=== PATIENT | male | born 1995 | race Caucasian/White ===

== ENCOUNTER 2016-07-28 17:07 | Emergency (ER) | payer OTHER ==
[~2016-07-28] VITALS: Wt 61.2 kg
[~2016-07-28 17:07] MED LIST: HYDR-3498 PO; IBUP-1542 PO
[2016-07-28] MEDS ORDERED: OSLT75C PO (19:05)
[2016-07-28] MEDS ORDERED: IBUP-1542 PO (19:07)
[2016-07-28] MEDS ORDERED: ACET500C5 PO (19:07)
[2016-07-28] MEDS ORDERED: ACETAMINOPHEN 325 MG TAB PO ONE (19:30)
[2016-07-28 19:49] VITALS: BP 121/75; PULSE 82; RESP 20; TEMP 100.3
--- NOTE | 2016-07-28 19:56 | ERD ---
ER Documentation Chief Complaint Date/Time DATE: 07/28/16 TIME: 19:53 Chief Complaint FEVER FOR 3 DAYS. BILATERAL EAR PAIN WITH HEADACHES. HPI Patient is a 21-year-old male who presents to the ED with fever, body aches, ear pain and cough for 2 days. He states that he was playing soccer 2 days ago in the rain and developed symptoms afterwards. He also states that his girlfriend has had similar symptoms. Denies neck pain or stiffness. Denies headache or dizziness or blurry vision. Denies abdominal pain, nausea, vomiting or diarrhea. She is taking Motrin for his symptoms last dose was last night. Denies leg pain or swelling or recent travel. Denies shortness of breath or difficulty breathing ROS All systems reviewed and are negative except as per history of present illness. Medications Home Meds Active Scripts Ibuprofen* (Motrin*) 600 Mg Tab, 600 MG PO Q6, #30 TAB Prov:LASHAE FONTANA-C 07/28/16 Acetaminophen* (Tylophen*) 500 Mg Capsule, 1 CAP PO Q6H Y for PAIN AND OR ELEVATED TEMP, #20 CAP Prov:LASHAE FONTANA PA-C 07/28/16 Oseltamivir Phosphate* (Tamiflu*) 75 Mg Capsule, 75 MG PO BID for 5 Days, CAP Prov:LASHAE FONTANA-C 07/28/16 Ibuprofen* (Motrin*) 600 Mg Tab, 600 MG PO Q6H Y for PAIN AND OR ELEVATED TEMP, #20 Prov:KAPLI GRAFF 01/28/15 Hydrocodone Bit-Acetaminophen* ([place]*) 5-325 Mg Tab, 1 TAB PO Q6 Y for PAIN, # 10 TAB Prov:KAPIL GRAFF 01/28/15 Allergies Allergies: Coded Allergies: No Known Allergy (Unverified , 05/03/11) PMhx/Soc History of Surgery: No Anesthesia Reaction: No Hx Neurological Disorder: No Hx Respiratory Disorders: Yes (hx of asthma ) Hx Cardiac Disorders: No Hx Psychiatric Problems: No Hx Miscellaneous Medical Probl: No Hx Alcohol Use: No Hx Substance Use: No Hx Tobacco Use: No FmHx Family History: No coronary disease, No diabetes, No other Physical Exam Vitals Vital Signs Date Time Temp Pulse Resp B/P Pulse Ox O2 Delivery O2 Flow Rate FiO2 2/13/17 17:18 101.6 79 20 134/72 98 Physical Exam GENERAL: Well-developed, well-nourished male. Appears in no acute distress. HEAD: Normocephalic, atraumatic. EYES: Pupils are equally reactive bilaterally. EOMs grossly intact. No conjunctival erythema. ENT: Moist mucous membranes. No uvula deviation. No kissing tonsils. No exudates. TMs clear with no erythema or drainage NECK: Supple. No lymphadenopathy or thyromegaly. No meningismus. negative kernig. negative brudinski. LUNG: Clear to auscultation bilaterally. No rhonchi, wheezing, rales or coarse breath sounds. HEART: Regular rate and rhythm. No murmurs, rubs or gallops. NEUROLOGIC: Alert and oriented. Moving all four extremities. 5/5 strength in all extremities. Normal speech. Steady gait. SKIN: Normal color. Warm and dry. No rashes or lesions. Capillary refill < 2 seconds Results 24 hrs Current Medications Medications (Trade) Dose Ordered Sig/Dharmesh Route PRN Reason Start Time Stop Time Status Last Admin Dose Admin Acetaminophen (Tylenol Tab) 650 mg ONCE ONCE PO 07/28/16 19:30 07/28/16 19:31 DC 07/28/16 19:16 Procedures/MDM ER COURSE: I kept the patient and/or family informed of laboratory and diagnostic imaging results throughout the emergency room course. MEDICATIONS: Tylenol 650 mg. Tolerated medication well with no adverse reaction. MEDICAL DECISION MAKING: This is a 21-year-old male who presents with fever, cough and body aches for 2 days. Vital signs were reviewed. Patient has a temperature of 101 here in the ED patient is not hypoxic. Patient likely has influenza-like virus. Low suspicion for pneumonia, PE, pneumothorax, ACS, epiglottitis, obstruction, TB, pertussis, meningitis, sepsis. Lung examination is within normal limits and patient does not show signs of respiratory distress DISCHARGE: At this time, patient is stable for discharge and outpatient management with no new complaints during the ER course. Patient was sent home with Tamiflu, Motrin and Tylenol. Patient will be discharged home with instructions to recheck for new or worsening symptoms such as fever, nausea, weakness, LOC and to follow up with primary care in the next 1-2 days. Patient was advised to return to the ER for any new or worsening symptoms. Plan was discussed and patient and/or family understands and agrees. Home instructions were given. Departure Diagnosis: Primary Impression: URI, acute Condition: Stable Patient Instructions: Influenza (Adult) Referrals: ALAN GARBER (PCP) Additional Instructions: Llame al doctor MAANA y octavia tisha PRAVEENA PARA DENTRO DE 1-2 REGALADO.Dgale a la secretaria que nosotros le instruimos hacer esta praveena.Avise o llame si andrews condicin se empeora antes de la praveena. Regresa aqui si peor o no mejor. LASHAE FONTANA PA-C Jul 28, 2016 19:56
== END 2016-07-28 19:49 | disposition home or self-care (01) ==
LOC: FTE 17:07
DX: J06.9 Acute upper respiratory infection, unspecified (principal); J45.909 Unspecified asthma, uncomplicated
CPT/HCPCS: Z7502; Z7610; 99283

== ENCOUNTER 2016-08-10 00:35 | Emergency (ER) | payer OTHER ==
[~2016-08-10] VITALS: Ht 167.6 cm; Wt 71.0 kg
[~2016-08-10 00:35] MED LIST changes: +ACET500C5 PO; +OSLT75C PO
[2016-08-10 00:42] VITALS: Ht 167.6 cm; Wt 71.0 kg
[2016-08-10] MEDS ORDERED: predniSONE 20 MG TAB PO ONE (03:30)
[2016-08-10] MEDS ORDERED: MINE3.5O30 LEFT EYE (03:43)
[2016-08-10] MEDS ORDERED: PRED20TA PO (03:43)
[2016-08-10] MEDS ORDERED: ACYC800T57 PO (03:43)
[2016-08-10] MEDS ORDERED: SODI126M NASAL (03:46)
[2016-08-10] MEDS ORDERED: ACET500C5 PO (03:46)
--- NOTE | 2016-08-10 03:54 | ERD ---
ER Documentation Chief Complaint Date/Time DATE: 08/10/16 TIME: 03:46 Chief Complaint l side face numbness for past 3 days, unable to completly close l eye HPI 21-year-old male presented to ED complaining of left-sided facial numbness 1 day. Patient stated that he is unable to close his left eye completely, and he has slurred when talking. Additionally, he is complaining of sore throat and bilateral ear pain 2 days. Denies fever or chills. Denies cough or runny nose. Denies upper or lower extremity weakness or numbness. ROS All systems reviewed and are negative except as per history of present illness. Medications Home Meds Active Scripts Acetaminophen* (Tylophen*) 500 Mg Capsule, 1 CAP PO Q6H Y for PAIN AND OR ELEVATED TEMP, #20 CAP Prov:JOAQUIN PALM. SHEET LAYER 08/10/16 Sodium Chloride (Saline Nasal Mist) 126 Ml Mist, 2 SPRAY NASAL Q2H Y for NASAL CONGESTION, #1 BOTTLE Prov:JOAQUIN PALM. SHEET LAYER 08/10/16 Mineral Oil/Petrolatum,White (ARTIFICIAL TEARS EYE OINT) 3.5 Gm Oint...g., 1 APPLIC LEFT EYE NEEDED Y for DRY EYES, #1 EA Prov:JOAQUIN PALM SHEET LAYER 08/10/16 Prednisone* (Prednisone*) 20 Mg Tab, 60 MG PO DAILY for 4 Days, TAB Prov:JOAQUIN PALM. SHEET LAYER 08/10/16 Acyclovir* (Zovirax*) 800 Mg Tablet, 800 MG PO 5 TIMES DAILY for 7 Days, TAB Prov:JOAQUIN PALM SHEET LAYER 08/10/16 Ibuprofen* (Motrin*) 600 Mg Tab, 600 MG PO Q6, #30 TAB Prov:HAVENTARIPAPITO CEBALLOSAZ PA-C 07/28/16 Acetaminophen* (Tylophen*) 500 Mg Capsule, 1 CAP PO Q6H Y for PAIN AND OR ELEVATED TEMP, #20 CAP Prov:SHOOSHTARIAN,TANNAZ PA-C 07/28/16 Oseltamivir Phosphate* (Tamiflu*) 75 Mg Capsule, 75 MG PO BID for 5 Days, CAP Prov:SHOOSHTARIAN,TANNAZ PA-C 07/28/16 Ibuprofen* (Motrin*) 600 Mg Tab, 600 MG PO Q6H Y for PAIN AND OR ELEVATED TEMP, #20 Prov:KAPIL GRAFF 01/28/15 Hydrocodone Bit-Acetaminophen* ([place]*) 5-325 Mg Tab, 1 TAB PO Q6 Y for PAIN, # 10 TAB Prov:KAPIL GRAFF 01/28/15 Allergies Allergies: Coded Allergies: No Known Allergy (Unverified , 05/03/11) PMhx/Soc Medical and Surgical Hx: pt denies Medical Hx, pt denies Surgical Hx History of Surgery: No Anesthesia Reaction: No Hx Neurological Disorder: No Hx Respiratory Disorders: Yes (hx of asthma ) Hx Cardiac Disorders: No Hx Psychiatric Problems: No Hx Miscellaneous Medical Probl: No Hx Alcohol Use: No Hx Substance Use: No Hx Tobacco Use: No Smoking Status: Never smoker Physical Exam Vitals Vital Signs Date Time Temp Pulse Resp B/P Pulse Ox O2 Delivery O2 Flow Rate FiO2 08/10/16 00:42 98.2 72 18 133/86 98 Physical Exam General impression: Well-developed, well-nourished. Alert, oriented, in no acute distress. Head: Normocephalic, atraumatic. Eyes: PERRL, EOM normal. Conjunctiva not injected. ENT: External canals clear. TM's pearly swan. Nasal mucosa erythematous and swollen. Oral mucosa normal. Oropharynx mildly erythematous, no pharyngeal swelling or exudates Neck: Supple, nontender. No lymphadenopathy. No nuchal rigidity. Respiration: Normal respiratory effort. Lungs clear to auscultate bilaterally. No wheezes, rales or rhonchi. Cardiovascular: Regular rate and rhythm. No murmurs or extra heart sounds. Abdomen: Abdomen normal to inspection. Nontender. No masses or organomegaly. Bowel sounds normal. Back: Normal to inspection. No midline spine tenderness. No CVA tenderness. Extremities: Extremities normal to inspection, nontender. ROM normal. Neuro: Mental status normal. Speech slightly slurred. Decreased motion noted on the left side of the face. Facial sensation equal bilaterally. MACHINE SETUP OPERATOR otherwise intact. Equal strength and sensation in all 4 extremities. Skin: Normal turgor. No rash or lesions. Psych: Normal mood and affect. 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 Low suspicion for stroke. Prednisone 60 mg given to the patient in the ED. Patient will be given prescription for additional 4 days of prednisone, as well as acyclovir for 7 days. Patient is educated on hypertension with artificial tears and taping the eyelid shut at night. Patient also has signs and symptoms of viral upper respiratory infection. Patient is afebrile, in no respiratory distress. Lungs are clear to auscultate. I doubt that patient has pneumonia or bronchitis. Patient appears well, stable for discharge and outpatient management. Medical decision making shared with patient and family. Education provided to patient and family. Patient and family expressed understanding of the plan. Medications on discharge: Prednisone, acyclovir, artificial tears, saline nasal spray, Tylenol. Follow-up: Primary care provider in 2-3 days or return to ED if worse. Departure Diagnosis: Primary Impression: Almazan's palsy Additional Impression: URI (upper respiratory infection) URI type: acute nasopharyngitis (common cold) Qualified Code: J00 - Acute nasopharyngitis Condition: Good Patient Instructions: Adult Self-Care for Colds, Almazan's Palsy Additional Instructions: Call your primary care doctor TOMORROW for an appointment during the next 2-3 days.See the doctor sooner or return here if your condition worsens before your appointment time. JOAQUIN PALM NP Aug 10, 2016 03:54
== END 2016-08-10 03:50 | disposition home or self-care (01) ==
LOC: FTE 00:35
DX: G51.0 Bell's palsy (principal); J00 Acute nasopharyngitis [common cold]; J45.909 Unspecified asthma, uncomplicated
CPT/HCPCS: J7512; Z7502; 99284